=== PATIENT | male | born 1940 | race Caucasian/White ===

== ENCOUNTER → 2017-09-04 | Outpatient (CLI) | payer MEDICARE, OTHER | END | disposition home or self-care (01) | LOC: HKI 13:38 | DX: Z47.89 Encounter for other orthopedic aftercare (principal) | CPT/HCPCS: G0463 ==

== ENCOUNTER → 2017-12-11 | Outpatient (CLI) | payer MEDICARE, OTHER | END | disposition home or self-care (01) | LOC: HKI 11:03 | DX: Z47.1 Aftercare following joint replacement surgery (principal); Z96.651 Presence of right artificial knee joint | CPT/HCPCS: 73560; 73560-RT ==

== ENCOUNTER → 2018-02-12 | Outpatient (CLI) | payer MEDICARE, OTHER | END | disposition home or self-care (01) | LOC: HKI 11:24 | DX: Z09 Encounter for follow-up examination after completed treatment for conditions other than malignant neoplasm (principal); M25.561 Pain in right knee; Z96.651 Presence of right artificial knee joint | CPT/HCPCS: G0463 ==

== ENCOUNTER 2018-03-01 08:48 | Day surgery (SDC) | payer MEDICARE, OTHER ==
[~2018-03-01 08:48] MED LIST: SOD CHLORIDE 0.45% 1,000 ML IV
[2018-03-01 09:50] LABS: ADD MAN DIFF? NO
[2018-03-01 10:03] LABS: BASOPHILS % 0.4 % (0.0-2.0); EOSINOPHILS # 0.2 10^3/ul (0.0-0.5); EOSINOPHILS % 1.8 % (0.0-7.0); HEMOGLOBIN 13.8 g/dl (14.0-18.0); LYMPHOCYTES # 1.4 10^3/ul (0.8-2.9); LYMPHOCYTES % 15.1 % (15.0-51.0); MEAN CORPUSCULAR HEMOGLOBIN 23.3 pg (29.0-33.0); MEAN CORPUSCULAR HGB CONC 30.7 g/dl (32.0-37.0); MEAN CORPUSCULAR VOLUME 75.9 fl (82.0-101.0); MEAN PLATELET VOLUME 10.5 fl (7.4-10.4); MONOCYTES % 11.1 % (0.0-11.0); NEUTROPHIL # 6.5 10^3/ul (1.6-7.5); NEUTROPHILS % 71.2 % (39.0-77.0); PLATELET COUNT 217 10^3/UL (140-415); RED BLOOD COUNT 5.93 10^6/ul (4.70-6.10); RED CELL DISTRIBUTION WIDTH 18.5 % (11.5-14.5)
[2018-03-01 10:03] LABS: WHITE BLOOD COUNT 9.1 10^3/ul (4.8-10.8)
[2018-03-01 10:32] LABS: ANION GAP 15 (8-16); BLOOD UREA NITROGEN 22 mg/dl (7-20); CALCIUM 9.1 mg/dl (8.4-10.2); CARBON DIOXIDE 26 mmol/L (21-31); CHLORIDE 102 mmol/L (97-110); CREATININE 1.49 mg/dl (0.61-1.24); GLUCOSE 136 mg/dl (70-220); POTASSIUM 3.6 mmol/L (3.5-5.1); SODIUM 139 mmol/L (135-144)
[2018-03-01 10:58] LABS: INR 1.54; PROTIME 18.8 Sec (11.9-14.9); PT RATIO 1.5
[2018-03-01 11:17] LABS: PARTIAL THROMBOPLASTIN TIME 37.4 Sec (25.0-35.0)
== END 2018-03-01 11:35 | disposition home or self-care (01) ==
LOC: SDS 08:48
DX: I48.91 Unspecified atrial fibrillation (principal); I10 Essential (primary) hypertension; Z79.01 Long term (current) use of anticoagulants
CPT/HCPCS: 71045; 80048; 85025; 85610; 85730; 93005; 93308

== ENCOUNTER 2018-05-15 06:09 | Emergency (ER) | payer MEDICARE, OTHER ==
[2018-05-15 06:54] LABS: ADD MAN DIFF? NO
[2018-05-15 06:56] LABS: ABNORMAL IP MESSAGE 1; BASOPHIL # 0.1 10^3/ul (0.0-0.1); BASOPHILS % 0.5 % (0.0-2.0); EOSINOPHILS # 0.2 10^3/ul (0.0-0.5); EOSINOPHILS % 1.8 % (0.0-7.0); HEMATOCRIT 52.5 % (42.0-52.0); HEMOGLOBIN 16.1 g/dl (14.0-18.0); LYMPHOCYTES # 1.9 10^3/ul (0.8-2.9); LYMPHOCYTES % 18.8 % (15.0-51.0); MEAN CORPUSCULAR HEMOGLOBIN 23.5 pg (29.0-33.0); MEAN CORPUSCULAR HGB CONC 30.7 g/dl (32.0-37.0); MEAN CORPUSCULAR VOLUME 76.6 fl (82.0-101.0); MEAN PLATELET VOLUME 9.2 fl (7.4-10.4); MONOCYTE # 1.2 10^3/ul (0.3-0.9); MONOCYTES % 12.1 % (0.0-11.0); NEUTROPHIL # 6.6 10^3/ul (1.6-7.5); NEUTROPHILS % 66.4 % (39.0-77.0); PLATELET COUNT 247 10^3/UL (140-415); POSITIVE DIFF @See below; RED BLOOD COUNT 6.85 10^6/ul (4.70-6.10); RED CELL DISTRIBUTION WIDTH 23.4 % (11.5-14.5)
[2018-05-15 07:14] LABS: ANION GAP 18 (8-16); BLOOD UREA NITROGEN 21 mg/dl (7-20); CALCIUM 9.8 mg/dl (8.4-10.2); CARBON DIOXIDE 25 mmol/L (21-31); CHLORIDE 102 mmol/L (97-110); CREATININE 1.74 mg/dl (0.61-1.24); GLUCOSE 118 mg/dl (70-220); POTASSIUM 4.4 mmol/L (3.5-5.1); SODIUM 141 mmol/L (135-144)
[2018-05-15 07:25] LABS: TROPONIN-I 0.013 ng/ml (0.000-0.120)
== END 2018-05-15 09:57 | disposition home or self-care (01) ==
LOC: E/R 06:09
DX: R13.10 Dysphagia, unspecified (principal); I10 Essential (primary) hypertension; I25.10 Atherosclerotic heart disease of native coronary artery without angina pectoris; Z79.01 Long term (current) use of anticoagulants; Z96.651 Presence of right artificial knee joint
CPT/HCPCS: 36415; 71045; 74176; 80048; 84484; 85025; 93005; 99285-25